=== PATIENT | female | born 1995 | race African-American/Black ===

== ENCOUNTER 2023-10-02 08:51 | Emergency (ER) | payer SELFPAY ==
[~2023-10-02] VITALS: Ht 165.1 cm; Wt 60.0 kg
[2023-10-02 09:04] VITALS: O2SAT 100
[2023-10-02] MEDS ORDERED: FLUC150T46 MT (09:33)
[2023-10-02 09:35] VITALS: BP 110/80; PULSE 66; RESP 17; TEMP 98
== END 2023-10-02 09:45 | disposition home or self-care (01) ==
LOC: ER 09:30
DX: B37.9 Candidiasis, unspecified (principal)
CPT/HCPCS: 99281; Z7610